=== PATIENT | male | born 1970 | race Caucasian/White ===

== ENCOUNTER 2022-02-02 13:06 | Emergency (ER) | payer OTHER, SELFPAY ==
[2022-02-02 13:22] VITALS: BP 140/91; PULSE 89; RESP 18; TEMP 36.6; O2SAT 99
--- NOTE | 2022-02-02 13:34 | ED.EAR ---
HPI - Ear Problem General Chief complaint: Ear Stated complaint: Lt ear pain Time Seen by Provider: 02/02/22 13:28 Source: patient Mode of arrival: ambulatory Limitations: no limitations History of Present Illness HPI Narrative: Patient presents today complaining of muffled hearing in the left ear x2 to 3 days. Denies pain or drainage. Denies any additional symptoms to include congestion, rhinorrhea, sore throat, cough. He has not tried any [id number] treatment prior to arrival. Related Data Home Medications Medication Instructions Recorded Confirmed albuterol 90 mcg/actuation aerosol 90 mcg inhalation DIRECTED 02/02/22 02/02/22 inhaler aspirin 81 mg tablet,delayed 81 mg DAILY 02/02/22 02/02/22 release atorvastatin 40 mg tablet 40 mg DAILY 02/02/22 02/02/22 cetirizine 10 mg tablet 10 mg DAILY 02/02/22 02/02/22 cholecalciferol (vitamin D3) 250 250 mcg PO DAILY 02/02/22 02/02/22 mcg (10,000 unit) tablet fluticasone propionate 50 1 spray intranasal DAILY 02/02/22 02/02/22 mcg/actuation nasal spray,suspension levothyroxine 175 mcg tablet 175 mcg DAILY 02/02/22 02/02/22 (Synthroid) telmisartan 40 1 tablet DAILY 02/02/22 02/02/22 mg-hydrochlorothiazide 12.5 mg tablet Allergies Allergy/AdvReac Type Severity Reaction Status Date / Time No Known Allergies Allergy Verified 02/02/22 13:27 Review of Systems Review of Systems: CONSTITUTIONAL: Denies body aches, fever, chills, or sweats. EYES: Denies visual changes, redness, or discharge. ENT: Denies rhinorrhea, congestion, sore throat, or otalgia.+ Left ear muffling CARDIOVASCULAR: Denies chest pain, palpitations, or edema. RESPIRATORY: Denies cough or dyspnea. GASTROINTESTINAL: Denies abdominal pain, nausea, vomiting, or diarrhea. GENITOURINARY: Denies dysuria or hematuria. SKIN: Denies rash, itching, or wounds. MUSCULOSKELETAL: Denies back pain, joint pain, or myalgia. NEUROLOGIC: Denies headache, numbness, tingling, or weakness. PSYCH: Denies depression or anxiety. [facility] Past Medical History Medical History (Updated 02/02/22 @ 13:38 by Юлия Michaels, [facility], ) High cholesterol Hypertension Hypothyroidism Comments At time of signature, I have reviewed and agree with nursing past medical, surgical, social and family history unless otherwise noted. Please see nursing chart for further information. There is no relevant family history pertinent to the presenting complaint Exam Narrative: GENERAL: Well-appearing, well-nourished, and in no acute distress. HEAD: Normocephalic, atraumatic. EYES: EOMI. No redness or drainage. Conjunctivae normal. ENT: Mucous membranes pink and moist. Nares clear. No rhinorrhea. Right TM normal. Left TM retracted, but normal in color. Canals normal bilaterally. No movement or tragal tenderness. NECK: Normal AROM. Supple. No lymphadenopathy. CHEST: No respiratory distress. EXTREMITIES: Normal range of motion. No edema. SKIN: Warm, dry, no rash. Capillary refill normal. Normal skin turgor. NEURO: No focal deficits. Alert and oriented x3. Gait steady. PSYCH: Normal affect. No signs of depression or anxiety. Course Course Level of Care: Express Care Visit Vital Signs Vital signs: Vital Signs Temperature 97.9 F 02/02/22 13:22 Pulse Rate 89 02/02/22 13:22 Respiratory Rate 18 02/02/22 13:22 Blood Pressure 140/91 H 02/02/22 13:22 Pulse Oximetry 99 02/02/22 13:22 Oxygen Delivery Room Air 02/02/22 13:22 Temperature 97.9 F 02/02/22 13:22 Pulse Rate 89 02/02/22 13:22 Respiratory Rate 18 02/02/22 13:22 Blood Pressure 140/91 H 02/02/22 13:22 Pulse Oximetry 99 02/02/22 13:22 Oxygen Delivery Room Air 02/02/22 13:22 Reviewed. Pt has been instructed to follow up with his PCP regarding his elevated blood pressure today. Medical Decision Making Differential Diagnosis Differential Diagnosis: Otitis media, otitis externa, ruptured TM, serous otitis
== END 2022-02-02 13:42 | disposition home or self-care (01) ==
PROVIDERS: Emergency Provider Nurse Practitioner; PCP Family Medicine
DX: H73.892 Other specified disorders of tympanic membrane, left ear (principal); E78.00 Pure hypercholesterolemia, unspecified; I10 Essential (primary) hypertension; E03.9 Hypothyroidism, unspecified
CPT/HCPCS: 99203; G0463